=== PATIENT | female | born 1980 | race Two or more races ===

== ENCOUNTER → 2019-04-26 | Outpatient (CLI) | payer OTHER ==
[2019-04-26 12:31] LABS: HEMATOCRIT 43.7 % (36.0-47.0); MEAN CORPUSCULAR HEMOGLOBIN 30.4 pg (27.0-33.0); PLATELET COUNT, AUTOMATED 268 10^3/uL (150-450); WHITE BLOOD COUNT 8.9 10^3/uL (4.0-10.0)
[2019-04-26 12:58] LABS: THYROID STIMULATING HORMONE 1.25 uIU/ML (0.358-3.740)
== END ==
LOC: M LAB 11:09
PROVIDERS: ATTEND Dermatology
DX: L65.9 Nonscarring hair loss, unspecified (principal)

== ENCOUNTER → 2019-06-27 | Outpatient (CLI) | payer OTHER ==
--- NOTE | 2019-06-27 14:52 | REP ---
Digital screening bilateral mammography with CAD and focused left breast sonography: History: Left breast pain upper outer quadrant region. No comparison breast imaging. Mammographic findings: Scattered fibroglandular elements are seen bilaterally. No asymmetric density is seen. No mass, architectural distortion or microcalcification is observed. No worrisome skin changes appreciated. No mammographic abnormality. Sonographic findings: The left breast is scanned from 12 o'clock to 3 o'clock through the upper outer quadrant. Heterogeneous fibroglandular background echotexture is seen. There are multiple small subcentimeter cysts noted. At 12 o'clock there are two cysts measuring 0.4 and 0.5 cm in greatest diameter. At 2 o'clock there are two small cysts measuring 0.3 and 0.6 cm in diameter. At 3 o'clock there is a 0.7 cm cyst and a 0.4 cm. No mass or acoustic shadowing is seen. Impression: BIRADS 2: BI-RADS/ACR category 2 mammogram. Benign Findings. Small sub-centimeter cysts seen by ultrasound in the upper outer quadrant on the left. No mammographic abnormality. Clinical followup is advised. This mammogram was interpreted with the aid of an FDA-approved computer-aided detection system. The patient states she had a clinical breast exam in May 2019. The patient letter being requested is m2. Electronically Signed by Noel Johnson MD 06/27/2019 02:57 P
== END ==
LOC: M RAD 12:50
PROVIDERS: ATTEND Nurse Practitioner Primary Care
DX: Z12.31 Encounter for screening mammogram for malignant neoplasm of breast (principal); N64.4 Mastodynia

== ENCOUNTER → 2019-08-25 | Outpatient (CLI) | payer OTHER | LOC: M LAB 13:45 | PROVIDERS: ATTEND Dermatology | DX: L65.9 Nonscarring hair loss, unspecified (principal) ==